=== PATIENT | male | born 1960 | race Caucasian/White ===

== ENCOUNTER 2025-05-01 09:15 | Outpatient (CLI) | payer BC ==
[2025-05-01 11:05] LABS: Estimated GFR - POC 62.0
[2025-05-01] MEDS ORDERED: Iopamidol 300 61% 100 ML VIAL FS ONE (11:26)
== END 2025-05-01 09:16 | disposition home or self-care (01) ==
LOC: CSHCT 09:15
PROVIDERS: ATTEND Otolaryngology Plastic Surgery within the Head & Neck
DX: C32.0 Malignant neoplasm of glottis (principal); J38.3 Other diseases of vocal cords
CPT/HCPCS: 70491; 82565; Q9967